=== PATIENT | female | born 1980 | race Caucasian/White ===

== ENCOUNTER 2017-01-09 11:22 | Emergency (ER) | payer OTHER ==
[~2017-01-09] VITALS: Ht 165.1 cm; Wt 110.1 kg
[2017-01-09 11:24] VITALS: TEMP 36.7; Ht 165.1 cm; Wt 110.1 kg
[2017-01-09] MEDS ORDERED: ALBUT/IPRATROP 3MG/0.5MG NEB 3 ML VIAL INH STA (11:33)
--- NOTE | 2017-01-09 12:03 | DIAGNOSTIC IMAGING REPORT ---
CHEST 2 VIEWS ROUTINE CLINICAL HISTORY: cough, wheezing COMPARISON STUDY: 06/23/2015 FINDINGS: The cardiac and mediastinal contours are normal. There is no evidence of focal pulmonary consolidation. There is no evidence of failure. No pleural effusions are visualized.[There is a right-sided cervical rib. IMPRESSION: No active disease in the chest. Electronically signed by: Kd Dinero M.D. 01/09/2017 12:02 PM Dictated Date/Time: 01/09/2017 12:01 PM
[2017-01-09] MEDS ORDERED: DEXAMETHASONE SOD INJ 10 MG/ML VIAL IM STA (12:15)
[2017-01-09] MEDS ORDERED: METH4PAK PO (12:19)
[2017-01-09] MEDS ORDERED: AZITTAB PO (12:19)
[2017-01-09] MEDS ORDERED: VNTHFA/IN INH (12:19)
--- NOTE | 2017-01-09 12:20 | EMERGENCY ROOM VISIT NOTE ---
History First contact with patient: 11:29 Chief Complaint: CONGESTION Stated Complaint: STUFFY NOSE, COUGH, DIFF. BREATHING, LIGHTHEADED Nursing Triage Summary: cough congestion for two maybe three days. tightness non productive. general malaise History of Present Illness The patient is a 36 year old female who presents to the Emergency Room with complaints of head congestion, cough and chest tightness for the past 5 days. The patient states initially was worse and her head but now she states that her symptoms are more in the chest. She feels like her chest is tight. She is a smoker but is trying to quit. The patient states that she had a fever at the onset of her symptoms but that has resolved. The patient also admits to a lot of postnasal drainage and irritated throat. The patient denies any ear pain but does admit to feeling off balance intermittently when she moves her head. The patient states that coworkers are sick with similar symptoms. Review of Systems 10 system review was performed and was negative unless stated otherwise history of present illness. Past Medical/Surgical History Medical Problems: (1) Endometriosis (2) Periumbilical hernia Family History Heart disease Social History Smoking Status: Current Every Day Smoker Marital Status: in relationship Housing Status: lives with family Occupation Status: unemployed Current/Historical Medications No Active Prescriptions or Reported Meds Physical Exam Vital Signs Date Time Temp Pulse Resp B/P (MAP) Pulse Ox O2 Delivery O2 Flow Rate FiO2 01/09/17 11:27 100 Room Air 01/09/17 11:24 36.7 92 20 161/103 100 Room Air Physical Exam PHYSICAL EXAM: Vital Signs were reviewed: Reviewed Nurse's notes and agree. Oxygen saturation is 100 % on room air which is normal . GENERAL: 36-year-old female appears in no acute distress. MENTAL STATUS: Alert, oriented, coherent. EARS: Canals clear. TMs good light reflex, no erythema or fluid level noted. NOSE: Nasal mucosa with moderate erythema engorgement. PHARYNX: Mild erythema, no edema noted. No exudate noted. Airway is adequate. There is thick postnasal drainage noted on the posterior pharynx. SINUSES: Tenderness to percussion throughout. NECK: Supple, non-tender. No lymphadenopathy noted. LUNGS: Patient has rhonchi noted throughout both lung stratton worse on the right as compared to the left. No wheezing noted. CARDIAC: Regular rate and rhythm without murmur. SKIN: No rashes noted. Medical Decision & Procedures ER Provider Diagnostic Interpretation: CHEST 2 VIEWS ROUTINE CLINICAL HISTORY: cough, wheezing COMPARISON STUDY: 06/23/2015 FINDINGS: The cardiac and mediastinal contours are normal. There is no evidence of focal pulmonary consolidation. There is no evidence of failure. No pleural effusions are visualized.[There is a right-sided cervical rib. IMPRESSION: No active disease in the chest. Electronically signed by: Kd Dinero M.D. 01/09/2017 12:02 PM Dictated Date/Time: 01/09/2017 12:01 PM Medications Administered Medications (Trade) Dose Ordered Sig/Antonio Route Start Time Stop Time Status Last Admin Dose Admin Albuterol/ Ipratropium (Duoneb) 3 ml NOW STAT INH 01/09/17 11:33 01/09/17 11:35 DC 01/09/17 12:00 3 ML ED Course The patient was evaluated. The patient's EMR medication list were reviewed. The patient was given a DuoNeb. Chest x-ray was ordered and interpreted by the radiologist and myself as above without any acute findings. The patient was informed of the findings. She was reevaluated was feeling slightly better. She was now able to cough up some mucus. On auscultation her left lung only had minor rhonchi right lung with persistent rhonchi but much improved from 3 treatment exam. The patient was given Decadron 10 mg IM. The patient was discharged home in stable condition. Medical Decision Differential diagnosis include pneumonia, reactive airway disease, acute sinusitis, viral URI, bronchitis [place] Drug Monitoring Program Search Results: patient reviewed within database Medication Reconcilliation Current Medication List: was personally reviewed by ca Blood Pressure Screening Patient's blood pressure: Elevated blood pressure Blood pressure disposition: Elevated BP felt to be situational Impression Primary Impression: Sinusitis, acute Additional Impression: Acute bronchitis Departure Information Dispostion Home / Self-Care Condition GOOD Prescriptions Albuterol Hfa (VENTOLIN HFA) 200 Puffs/05110 Mcg Aers 2 PUFFS INH QID for 5 Days, #1 INHALER Prov: Dorie Workman PA-C 01/09/17 Azithromycin (ZITHROMAX Z-MICHAEL) 250 Mg Tab 0 PO UD, #1 PKT Prov: Dorie Workman PA-C 01/09/17 Methylprednisolone (MEDROL DOSEPAK) 4 Mg Michael 0 PO DAILY, #1 PKT Prov: Dorie Workman PA-C 01/09/17 Referrals Maureen Beltre M.D. (PCP) Forms HOME CARE DOCUMENTATION FORM, IMPORTANT VISIT INFORMATION Patient Instructions Bronchitis Acute, ED Sinusitis Abx Tx, My [facility] Additional Instructions Take Medrol dosepak as prescribed. Take Z-Michael as prescribed. Also recommend [id number] Mucinex as an expectorant over the next 5 days. Tylenol and/ or ibuprofen as needed for pain or fever. Use albuterol inhaler as prescribed. Recommend follow-up with your family doctor in 2-3 days for reevaluation. If symptoms worsen in the interim, return to ER. Off work until Wednesday. Work Instructions Return To Work: 3 days Problem Qualifiers Primary Impression: Sinusitis, acute Sinusitis location: pansinusitis Recurrence: non-recurrent Qualified Codes : J01.40 - Acute pansinusitis, unspecified Additional Impression: Acute bronchitis Bronchitis organism: unspecified organism Qualified Codes: J20.9 - Acute bronchitis, unspecified
[2017-01-09 12:51] VITALS: BP 132/78; PULSE 88; O2SAT 97
== END 2017-01-09 12:52 | disposition home or self-care (01) ==
LOC: C.EDB 11:23 → C.EDD 12:52
DX: J01.40 Acute pansinusitis, unspecified (principal); J20.9 Acute bronchitis, unspecified; N80.9 Endometriosis, unspecified; F17.200 Nicotine dependence, unspecified, uncomplicated